=== PATIENT | female | born 1950 | race Caucasian/White ===

== ENCOUNTER 2018-05-13 02:23 | Emergency (ER) | payer MEDICARE, OTHER ==
[~2018-05-13] VITALS: Ht 152.4 cm; Wt 75.0 kg
[2018-05-13 02:34] VITALS: BP 158/90
--- NOTE | 2018-05-13 02:38 | NUR ---
PT HERE BECAUSE SHE THOUGHT SHE STILL HAD A CATHETER IN PLACE. PT LEFT AMA FROM [facility]. RN AND PA CHECKED AND THERE IS NO CATHETER IN PLACE. PT HAS BE ABLE TO URINATE AT HOME CLOTH WINDER.
--- NOTE | 2018-05-13 02:48 | NUR ---
PT ALSO WANTS FEEDING TUBE REMOVED. PT ADVISED THAT THAT IS NOT POSSIBLE AND TO FOLLOW UP WITH CARLOS BREWER AND ORAL SURGEON. PT AGREEABLE TO THIS. PT ASSISTED TO BATHROOM AND TAKEN TO DISCHARGE DESK. PT TO TAKE CAB HOME.
== END 2018-05-13 02:52 | disposition home or self-care (01) ==
LOC: ED 02:46
DX: Z85.810 Personal history of malignant neoplasm of tongue (principal)
CPT/HCPCS: 99283

== ENCOUNTER 2018-05-13 13:51 | Emergency (ER) | payer MEDICARE, OTHER ==
[~2018-05-13] VITALS: Ht 152.4 cm; Wt 73.0 kg
--- NOTE | 2018-05-13 13:57 | NUR ---
pt feroz, presents to ED requesting to resume care. pt left [facility] yesterday "because my friend ." pt was admitted for tx of mouth cancer. pt is a&ox4, however she is very anxious and tearful. pt denies pain. bp and spo2 monitors in place. call light in reach. awaiting MD and orders at this time. Addendum: 05/13/18 at 1401 by LEIF roxanna redman, report taken from EMS. pt presents to ED requesting to resume care. pt left [facility] yesterday "because my friend ." pt was admitted for tx of mouth cancer. pt is a&ox4, however she is very anxious and tearful. pt denies pain. bp and spo2 monitors in place. call light in reach. awaiting MD and orders at this time.
--- NOTE | 2018-05-13 14:02 | NUR ---
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 STEVEN Smith at bedside.
--- NOTE | 2018-05-13 14:14 | NUR ---
ativan not in ED omincell, med requested from pharmacy
[2018-05-13] MEDS ORDERED: LORazepam INTENSOL 2 MG/ML PO ONE (14:30)
--- NOTE | 2018-05-13 14:43 | NUR ---
handy arrived from pharmacy, admin through J tube with STEVEN Smith's ok. J tube placement verified by auscultation and aspiration. pt tolerated well. awaiting records from [facility] at this time.
--- NOTE | 2018-05-13 15:26 | NUR ---
pt remains very anxious and tearful, frequent verbal reassurance provided by this RN. EDMD aware. J tube cleaned, dressing applied. bp and spo2 monitors applied. pt requesting transfer to [facility], states she intended to go there by ambulance but got confused and requested [facility] mistakenly. transfer inquiry in process by throughput RN.
--- NOTE | 2018-05-13 15:38 | NUR ---
THROUGHPUT RN: SPOKE W/ MUKUL FROM [facility] WHO STATES SHE IS UNSURE ABOUT THE ACUTE NEED FOR TRANSFER BUT WILL PAGE REQUEST OUT TO DR. TELLES WHO WILL CALL TO DISCUSS CASE W/ ER DR. LAWSON. PACKET FAXED TO [phone].
--- NOTE | 2018-05-13 15:58 | NUR ---
SBAR report received from Gonsalo JONES. Pt resting on marcellusrseema, states that she just urinated on herself. ROBERT Brush, and RN student remain at bedside to clean pt. Pt aware of plan to admit and aware of need for IV access.
--- NOTE | 2018-05-13 16:10 | NUR ---
report to ROBERT Rm at bedside.
--- NOTE | 2018-05-13 16:13 | NUR ---
THROUGHPUT RN: MUKUL FROM [facility] REFUSING PT.
[2018-05-13 17:05] VITALS: BP 143/78
== END 2018-05-13 17:06 | disposition home or self-care (01) ==
LOC: ED 15:04
DX: C72.59 Malignant neoplasm of other cranial nerves (principal); I62.9 Nontraumatic intracranial hemorrhage, unspecified
CPT/HCPCS: 99283